=== PATIENT | female | born 1990 | race Two or more races ===

== ENCOUNTER 2020-02-08 16:00 | Emergency (ER) | payer SELFPAY ==
--- NOTE | 2020-02-08 16:47 | EDM.PDOC ---
ED HPI GENERAL MEDICAL PROBLEM - General Chief Complaint: Headache Stated Complaint: KNOT ON BACK OF HEAD, HEADACHES, NUMBNESS Time Seen by Provider: 02/08/20 16:36 Source of Information: Reports: Patient History Limitations: Reports: No Limitations - History of Present Illness INITIAL COMMENTS - FREE TEXT/NARRATIVE: HISTORY AND PHYSICAL: History of present illness: Patient is a 29-year-old female who presents to the emergency room with complaints of posterior headache. She states she has had this headache intermittently over the past several days and does have intermittent dizziness. She states the pain will sometimes be on the right side of the posterior scalp and other times on the left side of the posterior scalp. Today the posterior headache is generalized. Patient denies any fever, chills, neck pain/stiffness, change in vision, syncope or near syncope. Denies any chest pain, back pain, shortness of breath or cough. Denies any abdominal pain, nausea, vomiting, diarrhea, constipation or dysuria. Has not noted any blood in urine or stool. No concern for . Patient has been eating and drinking appropriately. [facility] was used for [place] to [place] Review of systems: As per history of present illness and below otherwise all systems reviewed and negative. Past medical history: As per history of present illness and as reviewed below otherwise noncontributory. Surgical history: As per history of present illness and as reviewed below otherwise noncontributory. Social history: See social history for further information Family history: As per history of present illness and as reviewed below otherwise noncontributory. Physical exam: General: Well developed and well [id number] year old female. Alert and orienta lina x 3. Nontoxic in appearance and in no acute distress. Vital signs are stable and have been reviewed by me. Nursing notes were reviewed. HEENT: Atraumatic, normocephalic, pupils equal and reactive bilaterally, negative for conjunctival pallor or scleral icterus, mucous membranes moist, TMs normal bilaterally, throat clear, neck supple, nontender, trachea midline. No drooling or trismus noted. No meningeal signs. No hot potato voice noted. Lungs: Clear to auscultation, breath sounds equal bilaterally, chest nontender. Normal work of breathing, no accessory muscles used. Heart: S1S2, regular rate and rhythm without overt murmur Abdomen: Soft, nondistended, nontender. Negative for masses or hepatosplenomegaly. Negative for costovertebral tenderness. Skin: Intact, warm, dry. No lesions or rashes noted. Hematologic: No petechiae or purpra. Mucosa appropriate color and normal nail bed color and refill. Extremities: Atraumatic, moves all extremities per self without difficulty or deficits, negative for cords or calf pain. Neurovascular unremarkable. Neuro: Awake, alert, oriented. Cranial nerves II through XII unremarkable. Cerebellum unremarkable. Motor and sensory unremarkable throughout. Exam nonfocal. Psychiatric: Mood and affect are appropriate. Normal thought process. Answering questions appropriately. Notes: Patient's physical exam is unremarkable. Neurologically intact. I did sign off this patient to Dr. Mati Ray who will sign diagnostics and therapeutics and disposition the patient appropriately Impression: Headache Definitive disposition and diagnosis as appropriate pending reevaluation and review of above. posterior head Pain Score (Numeric/FACES): 7 - Related Data Allergies Allergy/AdvReac Type Severity Reaction Status Date / Time No Known Allergies Allergy Verified 02/08/20 16:16 Home Meds: Home Meds . [No Known Home Meds] 02/08/20 [History] Past Medical History - Past Health History Medical/Surgical History: Denies Medical/Surgical History - Infectious Disease History Infectious Disease History: Reports: Chicken Pox Social & Family History - Family History Family Medical History: No Pertinent Family History - Tobacco Use Tobacco Use Status *Q: Never Tobacco User - Recreational Drug Use Recreational Drug Use: No ED ROS GENERAL - Review of Systems Review Of Systems: Comprehensive ROS is negative, except as noted in HPI. - Physical Exam Exam: See Below (See dictation) Course - Vital Signs Last Recorded V/S: Last Vital Signs Temp 96.9 F 02/08/20 16:12 Pulse 106 H 02/08/20 19:00 Resp 16 02/08/20 19:00 BP 111/73 02/08/20 19:00 Pulse Ox 97 02/08/20 19:00 - Orders/Labs/Meds Meds: Medications Discontinued Medications Generic Name Dose Route Start Last Admin Trade Name Freq PRN Reason Stop Dose Admin Diphenhydramine HCl 25 mg 02/08/20 17:18 02/08/20 17:28 Benadryl IVPUSH 02/08/20 17:19 25 mg ONETIME ONE Administration Metoclopramide HCl 10 mg 02/08/20 17:18 02/08/20 17:28 Reglan IVPUSH 02/08/20 17:19 10 mg ONETIME ONE Administration Departure - Departure Time of Disposition: 13:40 Disposition: Home, Self-Care 01 Clinical Impression: Headache - Discharge Information Instructions: Recurrent Migraine Headache, [id number] Referrals: PCP,None [Primary Care Provider] - Forms: ED Department Discharge Additional Instructions: The following information is given to patients seen in the emergency department who are being discharged to home. This information is to outline your options for follow-up care. We provide all patients seen in our emergency department with a follow-up referral. The need for follow-up, as well as the timing and circumstances, are variable depending upon the specifics of your emergency department visit. If you don't have a primary care physician on staff, we will provide you with a referral. We always advise you to contact your personal physician following an emergency department visit to inform them of the circumstance of the visit and for follow-up with them and/or the need for any referrals to a consulting specialist. The emergency department will also refer you to a specialist when appropriate. This referral assures that you have the opportunity for follow-up care with a specialist. All of these measure are taken in an effort to provide you with optimal care, which includes your follow-up. Under all circumstances we always encourage you to contact your private physician who remains a resource for coordinating your care. When calling for follow-up care, please make the office aware that this follow-up is from your recent emergency room visit. If for any reason you are refused follow-up, please contact the [facility] Emergency Department at and asked to speak to the emergency department charge nurse. Please follow up with your primary care physician. If you do not have a primary care physician, see below: [facility] [address] [place] [address] [facility] [address] [place] [address] Please follow-up with your primary care physician if you have any numbness weakness or acute headache please return to the ED. Sepsis Event Note (ED) - Evaluation Sepsis Screening Result: No Definite Risk
[2020-02-08] MEDS ORDERED: diphenhydrAMINE 50 MG/ML SDV IVPUSH ONE (17:18)
[2020-02-08] MEDS ORDERED: Metoclopramide 10 MG/2 ML SDV IVPUSH ONE (17:18)
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
== END 2020-02-08 19:00 | disposition home or self-care (01) ==
LOC: MW.ED 16:00
DX: R51.9 Headache, unspecified (principal)
CPT/HCPCS: 96374; 96375; 99283; J1200; J2765; 99282